=== PATIENT | male | born 1965 | race Caucasian/White ===

== ENCOUNTER 2024-01-06 17:28 | Inpatient (IN) | payer OTHER ==
[2024-01-06 23:37] VITALS: BMI 21.9
[2024-01-07 00:36] LABS: Actual Bicarbonate (HCO3v) 21.2 mEq/L (22-28); Base Excess -4.6 mEq/L (-2.0 to +3.0); Calcium, Ionized (venous) 1.21 mmol/L (1.16-1.32); Chloride (VBG) 102 mmol/L (98-106); Hematocrit-VBG 38 % (42.0-52.0); Hemoglobin (Hb) 12.9 g/dL (13.1-17.2); Potassium (VBG) 4.05 mmol/L (3.70-5.30); Sodium 136 mmol/L (133-146); pH (venous) 7.325 (7.32-7.43)
[2024-01-07 02:04] LABS: Lactic Acid 2.3 mmol/L (0.5-2.2)
[2024-01-07 02:09] LABS: Anion Gap 14 mmol/L (10-20); BUN (Urea Nitrogen) 17 mg/dL (8.4-25.7); Calc. Creatinine Clearance 87 mL/min (70-130); Calcium 9.7 mg/dL (7.8-10.44); Carbon Dioxide 17 mmol/L (22-29); Chloride 106 mmol/L (98-107); Estimated GFR 99; Glucose 109 mg/dL (70-105); Magnesium 2.2 mg/dL (1.6-2.6); Potassium 3.8 mmol/L (3.5-5.1); Sodium 133 mmol/L (136-145)
[2024-01-07] MEDS ORDERED: Ondansetron PF 4 MG/2 ML Vial IVP PRN (04:08)
[2024-01-07] MEDS ORDERED: Acetaminophen 650 MG Suppository PR PRN (04:08)
[2024-01-07] MEDS ORDERED: Ondansetron ODT 4 MG TAB PO PRN (04:08)
[2024-01-07] MEDS: Lactated Ringer's 500 ML IV SCH (05:37)
[2024-01-07] MEDS ORDERED: PHENYLEPHRINE-NS 100 MCG/ML 10 ML SYRINGE ONE (07:13)
[2024-01-07] MEDS: Famotidine 20 MG TAB PO SCH (09:07)
[2024-01-07] MEDS: Famotidine/PF 20 mg/2ml Vial SLOW IVP SCH (09:07)
[2024-01-07] MEDS: Acetaminophen 325 MG TAB PO PRN (09:19)
[2024-01-07 09:56] LABS: Lactic Acid 1.5 mmol/L (0.5-2.2)
[2024-01-07] MEDS: Azithromycin 500 MG in Sodium Chloride 0.9% 250 ML 250 ML IVPB SCH (10:11)
[2024-01-07] MEDS ORDERED: Gentamicin 80 MG/2 ML VIAL ONE ×2 (11:30→11:31)
[2024-01-07] MEDS ORDERED: CEFAZOLIN 2 GM VIAL ONE (11:31)
[2024-01-07] MEDS: cefTRIAXone\\ROCEPHIN 1 GM in Sodium Chloride 0.9% 100 ML IVPB SCH (11:47)
[2024-01-07] MEDS ORDERED: Propofol 500 MG/50 ML VIAL ONE (12:04)
[2024-01-07] MEDS ORDERED: Lidocaine 2% PF 100 mg/5 ml Syringe ONE (12:05)
[2024-01-07] MEDS ORDERED: Ondansetron PF 4 MG/2 ML Vial ONE (12:24)
[2024-01-07] MEDS ORDERED: ePHEDrine Sulfate 50 MG/10 ML VIAL ONE (12:25)
[2024-01-07] MEDS ORDERED: EPINEPHrine 1 MG/10 ML Abboject SYRINGE ONE (12:41)
[2024-01-07] MEDS ORDERED: PROPOFOL 20 ML ONE ×2 (13:25→13:58)
[2024-01-07] MEDS ORDERED: Furosemide 40 MG (4 mL) VIAL ONE (14:07)
[2024-01-07] MEDS ORDERED: Iopamidol 370 76% 100 ML VIAL ONE (14:39)
[2024-01-07] MEDS: Cephalexin 250 MG CAP PO SCH (15:33)
[2024-01-07] MEDS: Atorvastatin Calcium 40 MG TAB PO SCH (21:52)
[2024-01-08] MEDS: Artificial Tear Ophth Sol 15 ML BOT EA EYE PRN (00:25)
[2024-01-08 14:50] LABS: Anion Gap 15 mmol/L (10-20); BUN (Urea Nitrogen) 17 mg/dL (8.4-25.7); Calc. Creatinine Clearance 76 mL/min (70-130); Calcium 9.4 mg/dL (7.8-10.44); Carbon Dioxide 21 mmol/L (22-29); Chloride 108 mmol/L (98-107); Estimated GFR 87; Glucose 120 mg/dL (70-105); Potassium 4.7 mmol/L (3.5-5.1); Sodium 139 mmol/L (136-145)
[2024-01-08] MEDS: Acetaminophen/Codeine 30-300mg Tablet PO PRN (20:09)
[2024-01-09] MEDS ORDERED: Ipratropium/Albuterol 3 ML NEB NEB PRN (03:49)
[2024-01-09 04:09] LABS: Actual Bicarbonate (HCO3a) 18.7 mEq/L (22-28); Base Excess (BEa) -3.2 mEq/L (-2.0 to +3.0); CO2 Tension 25.1 mmHg (35.0-45.0); Calcium, Ionized (arterial) 1.23 mmol/L (1.12-1.30); Hematocrit-ABG 36 % (42.0-52.0); Hemoglobin (Hb) 12.2 g/dL (14.0-18.0); O2 Tension (PaO2), arterial 115.2 mmHg (> 80.0); Potassium - ABG Lab 4.29 mmol/L (3.70-5.30)
[2024-01-09 04:14] LABS: Puncture Site RBA
[2024-01-09] MEDS: Ipratropium/Albuterol 3 ML NEB NEB SCH (04:18)
[2024-01-09] MEDS: Furosemide 20 MG (2 mL) VIAL SLOW IVP SCH (04:35)
[2024-01-09 04:41] LABS: #Basophils 0.05 10x3/uL (0.0-0.2); %Basophils 0.7 % (0.0-1.0); %Lymphocytes 17.7 % (21.0-51.0); %Monocytes 14.9 % (0.0-10.0); %Neutrophils 64.3 % (42.0-75.0); Hemoglobin 11.5 g/dL (14.0-18.0); Mean Corpuscular HGB CONC 31.1 g/dL (32.0-36.0); Mean Corpuscular Hemoglobin 33.1 pg (27.0-31.0); Mean Corpuscular Volume 106.6 fL (78.0-98.0); Mean Platelet Volume 11.7 fL (7.4-10.4); Platelet Count 155 10x3/uL (130-400); RBC Distribution Width 18.5 % (11.5-14.5); Red Blood Cell (RBC) Count 3.47 mill/uL (4.70-6.10)
[2024-01-09 04:57] LABS: Anion Gap 15 mmol/L (10-20); BUN (Urea Nitrogen) 15 mg/dL (8.4-25.7); Calc. Creatinine Clearance 91 mL/min (70-130); Calcium 9.9 mg/dL (7.8-10.44); Carbon Dioxide 19 mmol/L (22-29); Chloride 106 mmol/L (98-107); Estimated GFR 101; Glucose 86 mg/dL (70-105); Magnesium 2.1 mg/dL (1.6-2.6); Potassium 4.4 mmol/L (3.5-5.1); Sodium 136 mmol/L (136-145)
[2024-01-09] MEDS ORDERED: Electrolyte Replacement Protocol FS SCH (05:00)
[2024-01-09] MEDS: Rivaroxaban 10 MG TAB PO SCH (18:26)
[2024-01-10 00:14] VITALS: BP 113/71; TEMP 97.6
[2024-01-10] MEDS ORDERED: Azithromycin 250 MG TAB PO SCH (09:00)
== END 2024-01-10 01:14 | DRG 277 ==
LOC: 2NO 23:08 → EEVIPCON 23:08
PROVIDERS: ADMIT Family Medicine; ATTEND Internal Medicine
PROC: 0JH609Z Insertion of Cardiac Resynchronization Defibrillator Pulse Generator into Chest Subcutaneous Tissue and Fascia, Open Approach (ICD-10-PCS; principal; 2024-01-07)
PROC: 02HL3KZ Insertion of Defibrillator Lead into Left Ventricle, Percutaneous Approach (ICD-10-PCS; 2024-01-07)
PROC: 02HK3KZ Insertion of Defibrillator Lead into Right Ventricle, Percutaneous Approach (ICD-10-PCS; 2024-01-07)
PROC: 3E0132A Introduction of Anti-Infective Envelope into Subcutaneous Tissue, Percutaneous Approach (ICD-10-PCS; 2024-01-07)
PROC: 4A133R1 Monitoring of Arterial Saturation, Peripheral, Percutaneous Approach (ICD-10-PCS; 2024-01-07)
DX: I44.2 Atrioventricular block, complete (principal); I50.22 Chronic systolic (congestive) heart failure; J81.1 Chronic pulmonary edema; E03.9 Hypothyroidism, unspecified; I48.21 Permanent atrial fibrillation; F20.9 Schizophrenia, unspecified; E78.5 Hyperlipidemia, unspecified; I48.92 Unspecified atrial flutter; I11.0 Hypertensive heart disease with heart failure; N40.0 Benign prostatic hyperplasia without lower urinary tract symptoms; I25.10 Atherosclerotic heart disease of native coronary artery without angina pectoris; D51.9 Vitamin B12 deficiency anemia, unspecified; K21.9 Gastro-esophageal reflux disease without esophagitis; F17.200 Nicotine dependence, unspecified, uncomplicated; Z79.899 Other long term (current) drug therapy; Z79.890 Hormone replacement therapy; Z79.82 Long term (current) use of aspirin
CPT/HCPCS: 33225; 33240; 36415; 36416; 36600; 71045; 80048; 82805; 83605; 83735; 83880; 84484; 85025; 93005; 93010; 94640; C1763; C1769; C1777; C1882; C1900; J0171; J0456; J0696; J1580; J1940; J2001; J2405; J2704; J3490; J7050; J7120; J7620; Q9967; S0028

== ENCOUNTER 2024-01-22 18:56 | Inpatient (IN) | payer OTHER ==
[~2024-01-22 18:56] MED LIST: Iopamidol-370 76% 500 ML MDV (1 ML CHARGE) ONE
[2024-01-22 19:48] LABS: #Basophils 0.07 10x3/uL (0.0-0.2); %Basophils 1.1 % (0.0-1.0); %Lymphocytes 14.6 % (21.0-51.0); %Monocytes 13.3 % (0.0-10.0); %Neutrophils 69.8 % (42.0-75.0); Hematocrit 37.5 % (42.0-52.0); Hemoglobin 11.9 g/dL (14.0-18.0); Mean Corpuscular HGB CONC 31.7 g/dL (32.0-36.0); Mean Corpuscular Hemoglobin 32.4 pg (27.0-31.0); Mean Corpuscular Volume 102.2 fL (78.0-98.0); Mean Platelet Volume 11.5 fL (7.4-10.4); Platelet Count 156 10x3/uL (130-400); RBC Distribution Width 16.5 % (11.5-14.5); Red Blood Cell (RBC) Count 3.67 mill/uL (4.70-6.10)
[2024-01-22] MEDS ORDERED: Ondansetron PF 4 MG/2 ML Vial ONE (19:53)
[2024-01-22] MEDS ORDERED: Morphine 4 MG/ML VIAL ONE (19:53)
[2024-01-22 20:01] LABS: ALT (SGPT) 18 U/L (8-55); AST (SGOT) 24 U/L (5-34); Albumin 3.6 g/dL (3.5-5.0); Alkaline Phosphatase 99 U/L (40-110); Anion Gap 13 mmol/L (10-20); BUN (Urea Nitrogen) 28 mg/dL (8.4-25.7); Bilirubin, Total 1.2 mg/dL (0.2-1.2); Calc. Creatinine Clearance 0 mL/min (70-130); Calcium 9.3 mg/dL (7.8-10.44); Carbon Dioxide 22 mmol/L (22-29); Chloride 105 mmol/L (98-107); Estimated GFR 73; Globulin 3.1 g/dL (2.4-3.5); Glucose 85 mg/dL (70-105); Potassium 4.6 mmol/L (3.5-5.1); Protein, Total 6.7 g/dL (6.0-8.3); Sodium 135 mmol/L (136-145)
[2024-01-22 20:07] LABS: Troponin I 0.034 ng/mL (< 0.028)
[2024-01-22 20:16] LABS: Lipase 53 U/L (8-78); Magnesium 2.3 mg/dL (1.6-2.6)
[2024-01-22] MEDS ORDERED: Ondansetron PF 4 MG/2 ML Vial IVP PRN (23:13)
[2024-01-22] MEDS ORDERED: Acetaminophen 325 MG TAB PO PRN (23:13)
[2024-01-22] MEDS ORDERED: Enoxaparin 60 MG (0.6 mL) SYRINGE ONE (23:39)
[2024-01-22] MEDS ORDERED: Furosemide 20 MG (2 mL) VIAL ONE (23:39)
[2024-01-22 23:55] LABS: Troponin I 0.033 ng/mL (< 0.028)
[2024-01-22] MEDS: Enoxaparin 60 MG (0.6 mL) SYRINGE SC SCH (23:59)
[2024-01-23 00:01] VITALS: BMI 20.7
[2024-01-23] MEDS ORDERED: Furosemide 40 MG (4 mL) VIAL ONE ×2 (06:24→12:36)
[2024-01-23] MEDS: Furosemide 40 MG (4 mL) VIAL SLOW IVP SCH (06:26)
[2024-01-23 07:24] LABS: Troponin I 0.033 ng/mL (< 0.028)
[2024-01-23 07:43] LABS: #Basophils 0.08 10x3/uL (0.0-0.2); %Basophils 1.4 % (0.0-1.0); %Eosinophils 2.3 % (0.0-10.0); %Lymphocytes 20.3 % (21.0-51.0); %Monocytes 18.1 % (0.0-10.0); %Neutrophils 57.7 % (42.0-75.0); Hematocrit 37.9 % (42.0-52.0); Hemoglobin 11.7 g/dL (14.0-18.0); Mean Corpuscular HGB CONC 30.9 g/dL (32.0-36.0); Mean Corpuscular Hemoglobin 32.5 pg (27.0-31.0); Mean Corpuscular Volume 105.3 fL (78.0-98.0); Mean Platelet Volume 12.2 fL (7.4-10.4); Platelet Count 146 10x3/uL (130-400); RBC Distribution Width 16.4 % (11.5-14.5)
[2024-01-23 08:02] LABS: Anion Gap 13 mmol/L (10-20); BUN (Urea Nitrogen) 26 mg/dL (8.4-25.7); Calc. Creatinine Clearance 60 mL/min (70-130); Calcium 8.9 mg/dL (7.8-10.44); Carbon Dioxide 22 mmol/L (22-29); Chloride 102 mmol/L (98-107); Estimated GFR 71; Glucose 85 mg/dL (70-105); Magnesium 2.3 mg/dL (1.6-2.6); Sodium 133 mmol/L (136-145)
[2024-01-23] MEDS ORDERED: Senokot S 8.6-50 MG TAB ONE (09:40)
[2024-01-23] MEDS ORDERED: Polyethylene Glycol 3350 17 GM Packet ONE (09:40)
[2024-01-23] MEDS: Polyethylene Glycol 3350 17 GM Packet PO SCH (10:43)
[2024-01-23] MEDS: Senokot S 8.6-50 MG TAB PO SCH (10:43)
[2024-01-23] MEDS ORDERED: Enoxaparin 60 MG (0.6 mL) SYRINGE ONE (10:48)
[2024-01-23] MEDS ORDERED: Acetaminophen 325 MG TAB PO PRN (17:59)
[2024-01-23] MEDS ORDERED: Artificial Tear Ophth Sol 15 ML BOT EA EYE PRN (17:59)
[2024-01-23] MEDS: Multivit, Therapeutic 1 TAB PO SCH (20:48)
[2024-01-23] MEDS: Ranolazine ER 500 MG TAB PO SCH (20:49)
[2024-01-23] MEDS: Thiamine 100 MG TAB PO SCH (20:49)
[2024-01-23] MEDS: Atorvastatin Calcium 40 MG TAB PO SCH (20:49)
[2024-01-23] MEDS: Gabapentin 100 MG CAP PO SCH (20:49)
[2024-01-23] MEDS: Folic Acid 1 MG TAB PO SCH (20:49)
[2024-01-24 04:37] LABS: #Basophils 0.06 10x3/uL (0.0-0.2); %Basophils 1.1 % (0.0-1.0); %Eosinophils 1.7 % (0.0-10.0); %Lymphocytes 15.3 % (21.0-51.0); %Monocytes 16.4 % (0.0-10.0); %Neutrophils 65.1 % (42.0-75.0); Hematocrit 33.1 % (42.0-52.0); Hemoglobin 10.3 g/dL (14.0-18.0); Mean Corpuscular HGB CONC 31.1 g/dL (32.0-36.0); Mean Corpuscular Hemoglobin 30.8 pg (27.0-31.0); Mean Corpuscular Volume 99.1 fL (78.0-98.0); Mean Platelet Volume 12.5 fL (7.4-10.4); Platelet Count 137 10x3/uL (130-400); RBC Distribution Width 16.5 % (11.5-14.5); Red Blood Cell (RBC) Count 3.34 mill/uL (4.70-6.10)
[2024-01-24 04:56] LABS: Anion Gap 11 mmol/L (10-20); BUN (Urea Nitrogen) 24 mg/dL (8.4-25.7); Calc. Creatinine Clearance 61 mL/min (70-130); Carbon Dioxide 26 mmol/L (22-29); Chloride 103 mmol/L (98-107); Estimated GFR 73; Glucose 82 mg/dL (70-105); Magnesium 2.2 mg/dL (1.6-2.6); Sodium 136 mmol/L (136-145)
[2024-01-24] MEDS: Levothyroxine Sodium 75 MCG TAB PO SCH (05:31)
[2024-01-24] MEDS: Empagliflozin 10 MG TAB PO SCH (08:14)
[2024-01-24] MEDS: Cyanocobalamin (Vitamin B-12) 1,000 MCG TAB PO SCH (08:14)
[2024-01-24] MEDS: Sertraline 25 MG TAB PO SCH (08:14)
[2024-01-24] MEDS: Clopidogrel Bisulfate 75 MG TAB PO SCH (08:14)
[2024-01-24] MEDS: Calcium Carbonate 600 MG + Vit D TAB PO SCH (08:14)
[2024-01-24] MEDS: Potassium Chloride 10 MEQ TAB PO SCH (08:14)
[2024-01-24] MEDS: Furosemide 40 MG TAB PO SCH (13:54)
[2024-01-25 05:17] LABS: #Basophils 0.06 10x3/uL (0.0-0.2); %Basophils 1.1 % (0.0-1.0); %Eosinophils 1.9 % (0.0-10.0); %Lymphocytes 16.3 % (21.0-51.0); %Monocytes 14.6 % (0.0-10.0); %Neutrophils 65.9 % (42.0-75.0); Hematocrit 32.6 % (42.0-52.0); Hemoglobin 10.5 g/dL (14.0-18.0); Mean Corpuscular HGB CONC 32.2 g/dL (32.0-36.0); Mean Corpuscular Hemoglobin 32.3 pg (27.0-31.0); Mean Corpuscular Volume 100.3 fL (78.0-98.0); Mean Platelet Volume 12.6 fL (7.4-10.4); Platelet Count 133 10x3/uL (130-400); RBC Distribution Width 16.1 % (11.5-14.5); Red Blood Cell (RBC) Count 3.25 mill/uL (4.70-6.10)
[2024-01-25 05:40] LABS: Anion Gap 11 mmol/L (10-20); BUN (Urea Nitrogen) 23 mg/dL (8.4-25.7); Calc. Creatinine Clearance 67 mL/min (70-130); Calcium 9.3 mg/dL (7.8-10.44); Carbon Dioxide 27 mmol/L (22-29); Chloride 100 mmol/L (98-107); Estimated GFR 83; Glucose 73 mg/dL (70-105); Potassium 3.9 mmol/L (3.5-5.1); Sodium 134 mmol/L (136-145)
[2024-01-25 12:24] VITALS: TEMP 98.1
[2024-01-25 17:34] VITALS: BP 101/62
== END 2024-01-25 19:25 | DRG 175 ==
LOC: ERS 18:56 → EEVIPCON 23:05 → ERHOLD 23:05 → 2NO 23:10
PROVIDERS: ADMIT Internal Medicine; ATTEND Family Medicine
DX: I26.93 Single subsegmental thrombotic pulmonary embolism without acute cor pulmonale (principal); I50.43 Acute on chronic combined systolic (congestive) and diastolic (congestive) heart failure; I48.92 Unspecified atrial flutter; I24.89 Other forms of acute ischemic heart disease; I11.0 Hypertensive heart disease with heart failure; I25.10 Atherosclerotic heart disease of native coronary artery without angina pectoris; I48.91 Unspecified atrial fibrillation; E78.5 Hyperlipidemia, unspecified; D64.9 Anemia, unspecified; K21.9 Gastro-esophageal reflux disease without esophagitis; E03.9 Hypothyroidism, unspecified; K74.00 Hepatic fibrosis, unspecified; N40.0 Benign prostatic hyperplasia without lower urinary tract symptoms; R79.89 Other specified abnormal findings of blood chemistry; F20.9 Schizophrenia, unspecified; Z99.3 Dependence on wheelchair; Z79.890 Hormone replacement therapy; Z79.899 Other long term (current) drug therapy; Z90.49 Acquired absence of other specified parts of digestive tract; Z98.890 Other specified postprocedural states; Z87.891 Personal history of nicotine dependence
CPT/HCPCS: 36415; 71045; 71275; 74177; 80048; 80053; 83690; 83735; 83880; 84484; 85025; 93005; 93970; 94760; 96374; 96375; J1650; J1940; J2270; J2405; Q9967